=== PATIENT | male | born 2000 | race Caucasian/White ===

== ENCOUNTER 2020-12-15 18:21 | Emergency (ER) | payer MEDICAID, SELFPAY ==
[2020-12-15 18:24] VITALS: BP 139/72; PULSE 78; RESP 18; TEMP 36.6; O2SAT 100
--- NOTE | 2020-12-15 18:30 | DI.RAD_ITS ---
Exam(s) XR LUMBAR SPINE COMPLETE EXAM: XR LUMBAR SPINE COMPLETE CLINICAL HISTORY: pain TECHNIQUE: COMPARISON: No exams were available for comparison FINDINGS: Five views were obtained. Intervertebral disc spaces appear fairly well maintained. There is no nora dence of acute fracture or dislocation. IMPRESSION: RADIATION DOSE DELIVERED: Total DLP
--- NOTE | 2020-12-15 18:34 | ED.GENADUL_ITS ---
Discharge Plan Disposition Patient Disposition: HOME Condition: Stable Discharge Details Chief Complaint: Nk/Back Pain Clinical Impression: Low back strain Primary Care Provider: Unknown,Unknown ED Provider: Mike Sanz Home Meds and New Rx's Prescriptions: No Action No Known Home Meds RF: 0 Discharge Instructions Instructions: Low Back Strain (ED) Additional Instructions: you likely have a back strain, your xray did not show concerning findings you can take 1000mg tylenol and 600mg ibuprofen every 6 hours as needed if pain continues in a week follow up with your primary care provider if you feel more ill, have severe worsening pain or difficulty with urination return to the emergency department Stand Alone Forms: Work Release Medical Decision Making 20 yo male who denies chronic medical problems comes in with cc of low back pain. He states he was rough housing with friends this morning and thinks he twisted his back, no falls or significant trauma. He went to work at [employer] and his back progressively got more painful so came here. He has not taken anything for his pain. he denies fevers, chills, chest pain, abdomen pain, upper back pain. He has not had difficulty urinating or weakness. He has a normal gait. He has no abdominal tenderness. He localizes the pain across the lumbar region. No saddle anesthesia and normal reflexes and sensation and pulses. soft muscles. Suspect back strain no findings to suggest sea or cauda equina or osteo. Will xray to evaluate for possible fracture though feel this is unlikely pt stable, xray unremarkable on my read and do not feel he needs to wait for vrad report, will call if they notice anything of concern. I suspect back strain and advised prn ibuprofen and tylenol and return precautions Differential Diagnosis Differential Diagnosis: back strain, muscle spasm Imaging Data Radiologic Study: Attestation: I personally reviewed and interpreted this imaging study as follows: Imaging: X-Ray My impression: no acute findings Lab Data Lab results reviewed: Yes I reviewed the patient's lab results. HPI General Mode of arrival: ambulatory . Date/Time Provider Initiated Documentation: 12/15/20 18:21 . Limitations to Documentation: no limitations . Information obtained by: patient . History of Present Illness 20 year old M presents to the emergency department with the chief complaint of low back pain, described as moderate, Quality is described as aching, and is localized to the back. Patient reports radiation to back. Patient started experiencing this hour(s) (7) and it has been constant. Rest improves symptom(s), Movement worsens symptoms . Patient notes no other symptoms.. Patient did receive the following treatments prior to arrival, none Related Data Home Medications Medication Instructions Recorded Confirmed Unknown [No Known Home Meds] 12/21/19 12/15/20 Allergies Allergy/AdvReac Type Severity Reaction Status Date / Time cephalexin Allergy Intermediate Hives Verified 12/15/20 18:27 General Stated Complaint: Nk/Back Pain YENY: 4 Review of Systems All systems reviewed & are unremarkable except as noted in HPI and below Constitutional Constitutional: Denies chills, Denies fever(s) and Denies weakness Cardiovascular Cardiovascular: Denies chest pain and Denies dyspnea Respiratory Respiratory: Denies cough and Denies dyspnea Gastrointestinal Gastrointestinal: Denies abdominal pain, Denies nausea and Denies vomiting Musculoskeletal Musculoskeletal: Denies joint swelling Neurologic Neurologic: Denies weakness Psychiatric Psychiatric: Denies depression [facility] Medical History (Updated 12/15/20 @ 19:09 by Mike Sanz MD) ADD (attention deficit disorder) single testicle Family History Mother No problems noted. Father Lung cancer in remission 11/24 Social History Smoking/Tobacco Use Status: Never Smoking risk assessment performed?: Yes Alcohol Intake: never Drug use: Never Substance use type: does not use Pets and animals: No Do you feel safe at home: Yes Do you feel safe in your relationship?: Yes Exam Const General: no acute distress Orientation: alert [facility] Head: normal to inspection Ears: external ears normal General nose exam: external nose normal Mouth: moist mucous membranes Eyes General: appearance normal, both eyes and all related structures Neck Neck: normal visual inspection Resp Effort & Inspection: normal respiratory effort and able to speak in complete sentences Cardio Rate: regular rate GI Palpation: soft and nontender Back/Spine/Pelvis Back: no CVA tenderness Skin General skin exam: no rashes or lesions noted Neuro General: patient alert and patient oriented x3 Extrem General: normal to inspection Psych Mental Status: mental status grossly normal Course Vital Signs Vital signs: Vital Signs Temperature 36.6 C 12/15/20 18:24 Pulse 78 12/15/20 18:24 Respiratory Rate 18 12/15/20 18:24 Blood Pressure 139/72 12/15/20 18:24 Pulse Oximetry 100 12/15/20 18:24 Temperature 36.6 C 12/15/20 18:24 Temperature Source Temporal Artery Scan 12/15/20 18:24 Pulse 78 12/15/20 18:24 Respiratory Rate 18 12/15/20 18:24 Respiratory Effort Non-Labored 12/15/20 18:28 Blood Pressure 139/72 12/15/20 18:24 Blood Pressure Position Sitting 12/15/20 18:24 Pulse Oximetry 100 12/15/20 18:24 Oxygen Delivery Method Room Air 12/15/20 18:24 Oxygen Flow Rate 0 12/15/20 18:24 Pain Level 6 12/15/20 18:33
[2020-12-15] MEDS: Ibuprofen 600 MG TAB PO (18:37)
[2020-12-15 19:23] VITALS: BP 122/68; PULSE 66; RESP 18; TEMP 36.7; O2SAT 98
--- NOTE | 2020-12-15 19:57 | DI.VRAD_ITS ---
PROCEDURE INFORMATION: Exam: XR Lumbosacral Spine Exam date and time: 12/15/2020 6:34 PM Age: 20 years old Clinical indication: Low back pain TECHNIQUE: Imaging protocol: XR of the lumbosacral spine. Views: 4 or 5 views. COMPARISON: No relevant prior studies available. FINDINGS: Bones/joints: Normal. No acute fracture. Normal alignment. Soft tissues: Unremarkable. IMPRESSION: No acute findings. Dictated and Authenticated by: Jose Dumont MD. Ordering:ELOISA Mckeon MD
== END 2020-12-15 19:00 | disposition home or self-care (01) ==
PROVIDERS: Emergency Provider Emergency Medicine
DX: S39.012A Strain of muscle, fascia and tendon of lower back, initial encounter (principal); X50.1XXA Overexertion from prolonged static or awkward postures, initial encounter
CPT/HCPCS: 99283; 72110; 99282

== ENCOUNTER 2021-02-19 14:40 | Outpatient (REF) | payer MEDICAID, SELFPAY ==
[2021-02-20 11:42] LABS: COVID-19 RT-PCR UVMMC Result Negative (Negative)
== END 2021-02-19 14:41 | disposition home or self-care (01) ==
LOC: NCHCN 14:40
PROVIDERS: Visit Provider Nurse Practitioner Family
DX: Z20.822 Contact with and (suspected) exposure to COVID-19 (principal); J02.9 Acute pharyngitis, unspecified
CPT/HCPCS: U0003

== ENCOUNTER 2024-06-04 00:37 | Emergency (ER) | payer SELFPAY ==
[2024-06-04] VITALS (116 sets, daily range): BP systolic 116–137; BP diastolic 43–90; PULSE 56–119; RESP 0–30; TEMP 36.6–36.7; O2SAT 85–100
--- NOTE | 2024-06-04 | RT.EKG_ITS ---
APPROVED REPORT Exam: Resting ECG Reason for Exam: OD Patient Location: E HR:108 bpm ECG Measurements Heart Rate 108 AXIS VT 163 P 40 QRSd 105 QRS 32 QT 355 T 49 QTc 476 Conclusion Sinus tachycardia...rate> [address] segment or T wave abnormalities to suggest occlusive [place]
[2024-06-04] MEDS: Ondansetron 4 MG/2 ML VIAL ×2 (00:05→01:25)
--- NOTE | 2024-06-04 00:29 | W.ED.GENAD ---
Discharge Plan Disposition Patient Disposition: Home Condition: Good Discharge Details Chief Complaint: OD/Poison Clinical Impression: Opiate overdose Primary Care Provider: Unknown,Unknown ED Provider: Eavngelina Suero Home Meds and New Rx's Prescriptions: No Action No Known Home Meds Discharge Instructions Instructions: Opioid Overdose ED Additional Instructions: Do not use recreational drugs. What happened last night would have killed you if you had not received medical attention. Please take home Narcan and make sure the people around you know how to use it. You will not be able to give it to yourself if you overdose. Return to the emergency department for new or worsening symptoms including chest pain, difficulty breathing, feeling like you are going to pass out, or if you have any other concerns. Referrals: Lexi Kraus [Emergency Nurse] - [facility] General Mode of arrival: ambulatory. Date/Time Provider Initiated Documentation: 06/04/24 00:38. Limitations to Documentation: no limitations. Information obtained by: patient. HPI Narrative: 23yo previously healthy male presenting for overdose. He and several friends snorted a white powder that they thought was cocaine. Multiple people then became unresponsive. Pt with agonal breathing when 911 was called; on EMS arrival he was apneic with a good pulse. Received a total of 3mg of narcan with good response in breathing and alertness. No fall or head injury. No pain anywhere. Otherwise in his usual state of health. Was feeling well prior to this event. Related Data Home Medications ?Medication ?Instructions ?Recorded ?Confirmed Unknown [No Known Home Meds] 12/21/19 06/04/24 Allergies Allergy/AdvReac Type Severity Reaction Status Date / Time cephalexin Allergy Intermediate Hives Verified 06/04/24 00:51 General YENY: 4 Review of Systems Narrative: see HPI Exam Narrative Exam Narrative: General: Alert, in no acute distress. Head: Normocephalic, atraumatic Neck: Trachea midline, ?Neck supple. ENT: ?MMM.? Cardiac: ?RRR, no murmurs appreciated Resp: No respiratory distress. CTAB. Abd: ?Soft, non-distended, nontender Extremities: ?No deformities.? No peripheral edema. Neurologic: GCS 15. ? Moves all extremities freely against gravity Medical Decision Making 23yo previously healthy male presenting for overdose. He and several friends snorted a white powder that they thought was cocaine. Multiple people then became unresponsive. Pt with agonal breathing when 911 was called; on EMS arrival he was apneic with a good pulse. Received a total of 3mg of narcan with good response in breathing and alertness. Alert with no complaints on arrival. Tachycardiac on initial vital signs and O2 sat 87% on room air; placed on 4L NC with good effect. EKG on arrival ST with rate low 100's, appropriate intervals, no ST segment or T wave abnormalities to suggest occlusive [place]. VBG reassuring with no hypercarbia. Shortly after arrival patient began vomiting; controlled with total of 8mg IV zofran. Plan to observe in the ED for at least 4 hours for recurrence of respiratory depression. On reassessment patient remains somewhat somnolent, does arouse easily to voice. ET CO2 high 40's. Has not required additional Narcan here. Will continue to monitor here in the ED until fully alert. Signed out to oncoming physician Dr. Chandler. Tentative discharge instructions written. Lab Data Lab results reviewed: Yes I reviewed the patient's lab results. Labs: Laboratory Tests Range/Units 06/04/24 00:46 VBG pH (7.31-7.41) 7.41 VBG pCO2 (41-51) mmHg 42 VBG pO2 mmHg 48 VBG HCO3 (23-28) mmol/L 26 VBG Total CO2 (24-29) mmol/L 23 L VBG O2 Saturation % 86 VBG Base Excess (-2-3) mmol/L 2 Quality:SDOH Health Related Social Needs: No Data to Display PFSH All Active Problems (Updated 06/04/24 @ 07:21 by Evangelina Suero MD) Opiate overdose (Acute) Low back strain (Acute) Abnormal weight loss (Acute 06/23/12) Attention deficit hyperactivity disorder (Acute 06/23/12) Body mass index, pediatric, 5th percentile to less than 85th percentile for age (Acute 11/10/14) Insomnia (Acute 03/01/14) Pediatric body mass index (BMI) of 5th percentile to less than 85th percentile for age (Acute 02/24/17) Routine child health exam (Acute 11/16/15) Medical History (Updated 06/04/24 @ 07:21 by Evangelina Suero MD) single testicle ADD (attention deficit disorder) Family History Mother No problems noted. Father Lung cancer in remission 11/24 Social History Smoking/Tobacco Use Status: Never Smoking risk assessment performed?: Yes Alcohol Intake: never Drug use: Never Substance use type: does not use Details: denies all drug use, Housing: house Pets and animals: No Do you feel safe at home: Yes Do you feel safe in your relationship?: Yes
[2024-06-04 00:48] LABS: BE (Venous) 2 mmol/L (-2-3); HCO3 (Venous) 26 mmol/L (23-28); O2 Sat (Venous) 86 %; TCO2 (Venous) 23 mmol/L (24-29); pCO2 (Venous) 42 mmHg (41-51); pH (Venous) 7.41 (7.31-7.41); pO2 (Venous) 48 mmHg
[2024-06-04 08:10] LABS: *AMPHETAMINES SCREEN URINE Negative (Negative); *BARBITURATES SCREEN URINE Negative (Negative); *BENZODIAZEPINES SCREEN URINE Negative (Negative); Cannabinoids THC Positive (Negative); Cocaine Screen,Urine Negative (Negative); METHADONE URINE SCREEN Negative (Negative); OPIATES URINE SCREEN Negative (Negative)
[2024-06-04 08:20] LABS: Tricyclic Antidepressants Negative (Negative)
--- NOTE | 2024-06-04 08:32 | ED.PROG_ITS ---
Date of service: 06/04/24 Time of Service: 08:32 Medical Decision Making Care assumed from outgoing provider. Fifth patient is a 23-year-old gentleman with severe opiate overdose, responded to 4 mg of Narcan, has been monitored but not completely returned to baseline. End-tidal CO2 still in the 50s. Does clayton use when you going to talk to him. Will continue to monitor for sobriety. Patient awake, end-tidal down into the 40s, eating breakfast. Stable for discharge home Quality:SDOH Health Related Social Needs: No Data to Display Discharge Plan Disposition Patient Disposition: Home Condition: Good Discharge Details Clinical Impression: Opiate overdose Primary Care Provider: Unknown,Unknown ED Provider: Hyacinth Chandler Home Meds and New Rx's Prescriptions: No Action No Known Home Meds Discharge Instructions Instructions: Opioid Overdose ED Additional Instructions: Do not use recreational drugs. What happened last night would have killed you if you had not received medical attention. Please take home Narcan and make sure the people around you know how to use it. You will not be able to give it to yourself if you overdose. Return to the emergency department for new or worsening symptoms including chest pain, difficulty breathing, feeling like you are going to pass out, or if you have any other concerns. Referrals: Lexi Kraus [Emergency Nurse] -
== END 2024-06-04 09:31 | disposition home or self-care (01) ==
PROVIDERS: Student in an Organized Health Care Education/Training Program; Emergency Provider Emergency Medicine
DX: T40.601A Poisoning by unspecified narcotics, accidental (unintentional), initial encounter (principal)
CPT/HCPCS: 99284; 99285; 96374; 96376; 36415; 00123; 80307; 82805; 93005; 93010; J2405